=== PATIENT | male | born 1975 | race Caucasian/White ===

== ENCOUNTER 2019-02-12 00:57 | Inpatient (IN) | payer OTHER | END 2019-02-14 12:31 | disposition home or self-care (01) | LOC: JER 00:57 → JERBED 05:59 → J6S 09:45 ==

== ENCOUNTER 2019-08-25 23:32 | Emergency (ER) | payer OTHER ==
[2019-08-25 23:47] VITALS: BP 136/65; PULSE 99; TEMP 97.3; BMI 25.7
[2019-08-25] MEDS ORDERED: ALBUTEROL SO4 2.5/IPRATROPIUM 0.5 INH SOL 3 ML VIAL.NEB. NEB ONE ×2 (23:47→23:54)
[2019-08-25] MEDS ORDERED: methylPREDNISolone NA SUCC 125 MG/2 ML VIAL IVPB ONE (23:54)
[2019-08-25] MEDS ORDERED: MAGNESIUM SULF 50% (8.12 MEQ/2 ML-1 GM VIAL) IVPB ONE (23:54)
--- NOTE | 2019-08-26 00:01 | PDOC ---
Attending Attestation - Resident Resident Name: Tan Fraser - ED Attending Attestation I have performed the following: I have examined & evaluated the patient, The case was reviewed & discussed with the resident, I agree w/resident's findings & plan - HPI HPI: 08/26/19 01:15 Pt comes with asthma exacerbation and wheeze and cough x 1 day. He is NOT a smoker. 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 He went to a friedn't home where the heat was on high and it was anam and that may have made him worse. He has no ill contacts and he has no fevers or chills. - Physicial Exam PE: 08/26/19 01:15 Pt has a normal exam except for wheeze bilaterally and throughout 08/26/19 01:25 Afebrile appears well good breath exchange, other than the wheeze throughout. - Medical Decision Making 08/26/19 01:14 CXR normal exam: still wheezing. 08/26/19 01:31 terbutaline and he will be observed. 08/26/19 07:05 Stable for discharge
--- NOTE | 2019-08-26 00:02 | PDOC ---
History of Present Illness - General Chief Complaint: Asthma Stated Complaint: ASTHMA History Source: Patient Exam Limitations: No Limitations - History of Present Illness Initial Comments: 08/25/19 23:58 43 yo M with hx of asthma (denies hx of intubation; last steroid use 9 months ago) presents to the emergency department with SOB that began today at 6pm. Per the patient, he states he was working when he felt SOB that was consistent with his previous asthma exacerbations. The patient has been using his albuterol inhaler today (4x) without relief of symptoms. Denies smoking history. Denies the following: fevers, chills, nausea, vomiting, chest pain, abdominal pain, dysuria, hematuria, diarrhea, and leg pain/swelling. Allergies: NDKA Past History - Past Medical History Allergies/Adverse Reactions: Allergies Allergy/AdvReac Type Severity Reaction Status Date / Time No Known Allergies Allergy Verified 08/25/19 23:43 Home Medications: Ambulatory Orders Albuterol Sulfate [Proair Hfa] 8.5 gm IH [id number] 02/12/19 Montelukast Na [Singulair -] 10 mg PO HS #30 tablet 02/14/19 Albuterol 0.083% Nebulizer Jazmyne [Ventolin 0.083% Nebulizer Soln -] 1 neb NEB Q4H #5 vial 08/26/19 Prednisone [Prednisone 50 MG TABLETS] 50 mg PO DAILY #5 tablet 08/26/19 Anemia: No Asthma: Yes Cancer: No Cardiac Disorders: No CVA: No COPD: No CHF: No Dementia: No Diabetes: No GI Disorders: No Disorders: No HTN: No Hypercholesterolemia: No Liver Disease: No Seizures: No Thyroid Disease: No - Surgical History Abdominal Surgery: No Appendectomy: No Cardiac Surgery: No Cholecystectomy: No Lung Surgery: No Neurologic Surgery: No Orthopedic Surgery: No - Immunization History Td Vaccination: Yes TDAP Vaccination: Yes Immunization Up to Date: No - Psycho Social/Smoking Cessation Hx Smoking Status: No Smoking History: Never smoked Have you smoked in the past 12 months: No Number of Cigarettes Smoked Daily: 0 Information on smoking cessation initiated: No Hx Alcohol Use: No Drug/Substance Use Hx: No Substance Use Type: None Hx Substance Use Treatment: No Review of Systems - Review of Systems Able to Perform ROS?: Yes Is the patient limited Indian proficient: No Constitutional: No: Chills, Diaphoresis, Fever, Weakness HEENTM: No: Eye Pain, Ear Pain, Nose Pain, Throat Pain, Mouth Pain Respiratory: Yes: Cough, Shortness of Breath. No: Hemoptysis Cardiac (ROS): No: Chest Pain, Lightheadedness, Palpitations, Chest Tightness ABD/GI: No: Constipated, Diarrhea, Difficulty Swallowing, Nausea, Rectal Bleeding, Vomiting, Tarry Stools : No: Burning, Dysuria, Hematuria Musculoskeletal: No: Back Pain, Joint Pain, Neck Pain Integumentary: No: Bruising, Erythema, Rash Neurological: No: Headache, Numbness, Tingling, Tremors Psychiatric: No: Change in Appetite Endocrine: No: Unexplained Weight Gain, Unexplained Weight Loss Hematologic/Lymphatic: No: Anemia *Physical Exam - Vital Signs Last Vital Signs Temp Pulse Resp BP Pulse Ox 97.3 F L 99 H 20 136/65 96 08/25/19 23:43 08/25/19 23:43 08/25/19 23:43 08/25/19 23:43 08/25/19 23:43 - Physical Exam General Appearance: Yes: Nourished, Appropriately Dressed. No: Apparent Distress, Intoxicated HEENT: positive: EOMI, TANNER, Normal Voice, Symmetrical, Pharynx Normal, Nasal Congestion, Hearing Grossly Normal. negative: Pale Conjunctivae, Scleral Icterus (R), Scleral Icterus (L), Muffled/Hoarse voice, Pharyngeal Erythema, Tonsillar Exudate, Tonsillar Erythema, Rhinorrhea, Excessive drooling Neck: positive: Trachea midline, Supple. negative: Tender, Lymphadenopathy (R) , Lymphadenopathy (L), Tender lateral, Tender midline Respiratory/Chest: positive: Rhonchi, Wheezing. negative: Chest Tender, Lungs Clear, Normal Breath Sounds, Respiratory Distress, Accessory Muscle Use Cardiovascular: positive: Regular Rhythm, Regular Rate, S1, S2. negative: Systolic Murmur Gastrointestinal/Abdominal: positive: Normal Bowel Sounds, Flat, Soft. negative : Tender, Distended, Guarding, Rebound Lymphatic: negative: Adenopathy Musculoskeletal: positive: Normal Inspection. negative: CVA Tenderness, Vertebral Tenderness Extremity: positive: Normal Capillary Refill, Normal Inspection, Normal Range of Motion. negative: Tender, Swelling, Calf Tenderness Integumentary: positive: Normal Color, Dry, Warm. negative: Swelling, Ecchymosis Neurologic: positive: operating room technologist II-XII NML intact, Fully Oriented, Alert, Normal Mood/ Affect, Normal Response, Motor Strength /5 Medical Decision Making - Medical Decision Making 43 yo M with hx of asthma presenting asthma exacerbation Initial vitals; Initial Vital Signs Temp Pulse Resp BP Pulse Ox 97.3 F L 99 H 20 136/65 96 08/25/19 23:43 08/25/19 23:43 08/25/19 23:43 08/25/19 23:43 08/25/19 23:43 Work up: ddx: the patient presents with exacerbation. r/o PNA. likely viral cause for URI like symptoms triggering asthma exacerbation. Will give 3x amps duoneb, solumedrol, magnesium. CXR negative patient was reassessed. wheezing is gone, clear breath sounds bilaterally. patient is objectively and subjectively well and discharged from the department. Discharge - Discharge Information Problems reviewed: Yes Clinical Impression/Diagnosis: Asthma Condition: Improved Disposition: HOME - Admission No - Additional Discharge Information Prescriptions: Albuterol 0.083% Nebulizer Jazmyne [Ventolin 0.083% Nebulizer Soln -] 1 neb NEB Q4H #5 vial Prednisone [Prednisone 50 MG TABLETS] 50 mg PO DAILY #5 tablet - Follow up/Referral Referrals: [facility] [place] [Provider Group] - Patient Discharge Instructions Patient Printed Discharge Instructions: Asthma -- Adult Additional Instructions: You were seen in the emergency department for the evaluation of your shortness of breath. Please follow up with your primary medical doctor or the one referred to you within 1 week after discharge. Please return to the emergency department if you have worsening symptoms or new concerning symptoms please return to the emergency department. - Post Discharge Activity
[2019-08-26] MEDS ORDERED: methylPREDNISolone NA SUCC 125 MG/2 ML VIAL ONE (00:05)
[2019-08-26] MEDS ORDERED: MAGNESIUM SULF 50% (8.12 MEQ/2 ML-1 GM VIAL) ONE (00:21)
[2019-08-26] MEDS ORDERED: TERBUTALINE SULFATE 1 MG/1 ML VIAL SQ ONE ×3 (01:22→02:00)
== END 2019-08-26 02:53 | disposition home or self-care (01) ==
LOC: JER 23:32
PROC: 3E0F7GC Introduction of Other Therapeutic Substance into Respiratory Tract, Via Natural or Artificial Opening (ICD-10-PCS; principal; 2019-08-25)
PROC: 3E033GC Introduction of Other Therapeutic Substance into Peripheral Vein, Percutaneous Approach (ICD-10-PCS; 2019-08-25)
PROC: 3E023GC Introduction of Other Therapeutic Substance into Muscle, Percutaneous Approach (ICD-10-PCS; 2019-08-25)
DX: J45.909 Unspecified asthma, uncomplicated (principal)
CPT/HCPCS: 71046-TC-FY; 99282-25

== ENCOUNTER 2020-11-04 15:09 | Emergency (ER) | payer OTHER ==
[2020-11-04 15:29] VITALS: BP 130/77; PULSE 98; TEMP 98.1; BMI 25.0
[2020-11-04] MEDS ORDERED: DIPHTH,PERTUSS(ACELL),TET 0.5 ML DISP.SYRIN IM ONE ×2 (16:46→17:09)
== END 2020-11-04 17:16 | disposition home or self-care (01) ==
LOC: JERFT 15:09
PROC: 3E0234Z Introduction of Serum, Toxoid and Vaccine into Muscle, Percutaneous Approach (ICD-10-PCS; principal; 2020-11-04)
DX: S01.81XA Laceration without foreign body of other part of head, initial encounter (principal)
CPT/HCPCS: 90715; 99284-25

== ENCOUNTER 2020-12-29 00:26 | Emergency (ER) | payer OTHER ==
[2020-12-29 00:45] VITALS: BP 119/72; PULSE 74; TEMP 97.7; BMI 24.5
[2020-12-29] MEDS ORDERED: predniSONE 20 MG TABLET (UD) PO ONE (01:53)
[2020-12-29] MEDS ORDERED: predniSONE 20 MG TABLET (UD) ONE (01:58)
== END 2020-12-29 02:22 | disposition home or self-care (01) ==
LOC: JER 00:26
DX: L23.7 Allergic contact dermatitis due to plants, except food (principal)
CPT/HCPCS: 99283-25